=== PATIENT | female | born 1955 | race Two or more races ===

== ENCOUNTER 2021-02-14 10:17 | Emergency (ER) | payer MEDICARE, SELFPAY ==
[2021-02-14 11:12] VITALS: BP 139/67; PULSE 81; RESP 16; TEMP 35.8; O2SAT 99; BMI 24.0
--- NOTE | 2021-02-14 11:55 | ED_ITS ---
HPI - Ear Problem General Chief complaint: Ear Problems Stated complaint: ringing in ear/hearing loss Time Seen by Provider: 02/14/21 11:51 Source: patient Mode of arrival: ambulatory Limitations: no limitations History of Present Illness HPI Narrative: Patient with 4 months of ear ringing and pressure. But it has not improved Complaint: ear pain Location: left ear Duration: constant Severity: mild Discharge from ear: no Related Data Allergies Allergy/AdvReac Type Severity Reaction Status Date / Time No Known Allergies Allergy Verified 02/14/21 11:15 [No Known Allergies*] Review of Systems Constitutional: Constitutional: Reports no additional constitutional complaints Eyes: Eyes: Reports no additional eye complaints ENT: Denies dizziness Cardiovascular: Cardiovascular: Reports no additional cardiovascular complaints Respiratory: Respiratory: Reports as per HPI Gastrointestinal: Gastrointestinal: Reports no additional gastrointestinal complaints Genitourinary: Genitourinary: Reports no additional female genitourinary complaints Musculoskeletal: Musculoskeletal: Reports no additional musculoskeletal complaints Integumentary/Breasts: Skin/Breast: Denies rash Neurologic: Reports system reviewed and no additional complaints, except as documented, Denies dizziness and Denies Sensory deficit (Neuro) Psychiatric: Psychiatric: Denies anxiety [facility] Past Medical History Medical History High cholesterol Hypothyroid Social History Social History Advance Directives: No Advance Directives Information Provided: Yes Physical Exam Vital Signs: Vital Signs: Last Vital Signs Temp 96.4 F L 02/14/21 11:12 Pulse 81 02/14/21 11:12 Resp 16 02/14/21 11:12 BP 139/67 02/14/21 11:12 Pulse Ox 99 02/14/21 11:12 Body Mass Index 24.0 Const: General: healthy appearing Nutritional Appearance: average body habitus Orientation/consciousness: oriented to person and patient oriented x3 Limitations: no limitations HENMT: Head: Yes normal to inspection Ears: external ears normal General nose exam: Normal external nose present Mouth: Normal oral and palatal mucosa present and oropharynx normal Throat: Yes posterior oropharynx normal Eyes: General: appearance normal, both eyes and all related structures Neck: Other: supple Neck: Yes normal visual inspection Chest: Chest palpation & inspection: normal inspection of the chest Resp: Auscultation: clear to auscultation bilaterally Cardio: Jugular venous distension: no JVD Rate: regular rate Rhythm: regular rhythm Heart sounds: S1 normal heart sound present and S2 normal heart sound present GI: Inspection: Yes normal to inspection Palpation (GI): Soft to palpation, nontender and No hepatosplenomegaly present Auscultation: normal bowel sounds : General: Yes no CVA tenderness Back/Spine/Pelvis: Back: no CVA tenderness Skin: General skin exam: no rashes or lesions noted Neuro: General: oriented to person and patient oriented x3 Cranial nerves: Yes CN's II-XII intact bilaterally Motor exam (neuro): 5/5 motor strength present throughout Sensory Exam: No Sensory deficit (Neuro) Extrem: General: Yes normal to inspection Psych: Appearance: grossly normal Course Reevaluation(s) Reevaluation #1: tinnitus and ear pressure likely related to hearing loss will refer to Dr. Choe for ENT Time: 12:00 Discharge Plan Discharge Clinical Impression: Tinnitus Qualifiers: Laterality: left Qualified Code(s): H93.12 - Tinnitus, left ear Hearing loss Qualifiers: Hearing loss type: unspecified Laterality: left Qualified Code(s): H91.92 - Unspecified hearing loss, left ear Patient Disposition: Home, Self-Care Instructions: Hearing Loss (ED), Tinnitus (ED) Referrals: Jonny Whitley [Physician] - 1 week
== END 2021-02-14 12:09 | disposition home or self-care (01) ==
PROVIDERS: Emergency Provider Emergency Medicine
DX: H93.12 Tinnitus, left ear (principal); H91.92 Unspecified hearing loss, left ear
CPT/HCPCS: 99283

== ENCOUNTER 2021-09-20 14:30 | Emergency (ER) | payer MEDICARE, SELFPAY ==
--- NOTE | ~2021-09-20 | CT_ITS ---
EXAMINATION: CT INNER EAR TEMPORAL BONES CLINICAL INFORMATION: Left left ear loss of hearing. COMPARISON: None. TECHNIQUE: Multidetector helical was performed in the axial plane with generation of oblique axial and coronal reformatted projections. This CT examination was performed using dose optimization techniques as appropriate, variously including the following: *Automated exposure control *Adjustment of mA and/or kV according to patient size (this includes techniques or standardized protocols for targeted exams where dose is matched to indication/reason for exam; i.e. extremities or head) *Use of iterative reconstruction technique DLP: 457 mGy-cm. FINDINGS: Right: The external auditory canal appears normal. The tympanic membrane is not thickened. The middle ear cavity is well-aerated. The scutum is sharp. Prussak's space is clear. The tegmen is intact. The ossicular chain is intact. The facial nerve has a normal course. The inner ear structures are normally formed. The internal auditory canal is normal in size. The mastoid air cells are normally pneumatized and well-aerated. The carotid canal and jugular bulb appear normal. No bony erosion or destruction is seen. Left: The external auditory canal appears normal. The tympanic membrane is not thickened. The middle ear cavity is well-aerated. The scutum is sharp. Prussak's space is clear. The tegmen is intact. The ossicular chain is intact. The facial nerve has a normal course. The inner ear structures are normally formed. The internal auditory canal is normal in size. The mastoid air cells are normally pneumatized and well-aerated. The carotid canal and jugular bulb appear normal. No bony erosion or destruction is seen. Additional findings: There is mild paranasal sinus mucosal thickening. The imaged intracranial contents are unremarkable. CT/CT mastoid IMPRESSION: Bilateral mastoids and middle ear cavities are clear. No evidence of destructive process. No otosclerosis.
--- NOTE | ~2021-09-20 | CT_ITS ---
EXAMINATION: CT FACIAL BONES WITHOUT CONTRAST CLINICAL INFORMATION: Left ureter pain COMPARISON: None TECHNIQUE: 3 mm thin axial and reformatted 1.5 mm thin coronal and sagittal images of facial bones were obtained without contrast. DLP 239 mGy/cm This CT examination was performed using dose optimization techniques as appropriate, variously including the following: *Automated exposure control *Adjustment of mA and/or kV according to patient size (this includes techniques or standardized protocols for targeted exams where dose is matched to indication/reason for exam; i.e. extremities or head) *Use of iterative reconstruction technique FINDINGS: Exam is limited secondary to beam hardening artifact from dental amalgam. There is no acute maxillofacial fracture. The pterygoid plates are intact. The zygomatic arches are intact. The lamina papyracea are intact. The orbital rims are intact. The paranasal sinuses are well-aerated. No air-fluid levels are seen. There is no deviation of the nasal septum. The ostiomeatal complexes are clear. The lamina papyracea are intact. The ethmoid roofs are symmetric. The carotid canals are normally covered by bone. There are punctate calcifications in bilateral tonsils likely old chronic inflammatory process. No acute tonsillar enlargement seen. The nasopharyngeal and pharyngeal airway is widely patent. There are enlarged left submandibular gland and neck lymph nodes with the largest lymph node measuring 1.5 x 1.1 cm axial image 12/5. There are several additional lymph nodes visualized in the left neck level 2/3. No maxillary periapical disease is seen. The mastoid air cells and visualized middle ear cavities are well-aerated. The orbits are normal. The TMJs are unremarkable. The imaged portions of the brain demonstrate no acute abnormality. CT/CT facial bones wo con IMPRESSION: No acute process seen in the facial bones or the oral cavity. The mastoid sinuses are clear. No soft tissue mass seen in the oropharynx. There are benign calcifications in bilateral tonsillar pillars likely old chronic inflammatory process Enlarged left neck level 2 and level 3 lymph nodes suggestive of inflammatory nodes. Other etiologies a dense metastatic disease cannot be excluded. For further evaluation MRI neck can be performed as an outpatient.
[2021-09-20 16:45] VITALS: BP 145/92; PULSE 77; RESP 16; TEMP 36.3; O2SAT 99; BMI 24.5
--- NOTE | 2021-09-20 20:12 | ED_ITS ---
HPI - Ear Problem General Chief complaint: Ear Problems Stated complaint: Loss of hearing l ear Source: patient Mode of arrival: ambulatory Limitations: no limitations History of Present Illness HPI Narrative: 65-year-old female presents for several months of left ear blockage and decreased hearing. States that she was evaluated by ENT who said her exam was normal. Patient does have concerns because her ear feels full. She does not report loss of balance, dizziness, fevers, chills, or any other concerning symptoms. MD Complaint: decreased hearing Location: left ear Duration: constant Severity: moderate Relieving factors: nothing Exacerbating factors: nothing Discharge from ear: no Associated symptoms ear: decreased hearing Treatment prior to arrival: none Related Data Home Medications Medication Instructions Recorded Confirmed levothyroxine 50 mcg tablet 50 mcg PO DAILY 05/26/21 pravastatin 40 mg tablet 40 mg PO DAILY 05/26/21 Previous Rx's Medication Instructions Recorded ibuprofen 600 mg tablet 600 mg PO Q8H PRN pain 30 days #90 06/22/21 tabs ofloxacin 0.3 % ear drops 10 drp otic (ears) BID 7 days #10 07/01/21 mL Allergies Allergy/AdvReac Type Severity Reaction Status Date / Time No Known Allergies Allergy Verified 09/06/21 14:49 [No Known Allergies*] Review of Systems Review of Systems: Constitutional: No Fever, No Chills ENT/Mouth: Positive left ear decreased hearing, No Ear Pain, No Hoarseness, No sore throat Eyes: No Eye Pain, No Swelling, No Redness, No Foreign Body Cardiovascular: No Chest Pain, No SOB Respiratory: No Cough, No Dyspnea Gastrointestinal: No Nausea, No Vomiting, No Diarrhea, No abdominal Pain Genitourinary: No Dysuria, No Hematuria Musculoskeletal: No joint pain, No Myalgias, No Joint Swelling Skin: No Skin lacerations, No rash Neuro: No Weakness, No Numbness, No Paresthesias, No Loss of Consciousness, No Dizziness, No Headache Psych: No Anxiety/Panic, No Depression Heme/Lymph: no easy bruising, no Lymphadenopathy Endocrine: No Polyuria, No Polydipsia Yes all other systems are reviewed and are negative [facility] Past Medical History Attestation statement: The following information was validated with the patient. Source: old records reviewed Medical History High cholesterol Hypothyroid Social History Social History Patient Tobacco Use Status: Never used Tobacco Advance Directives: No Advance Directives Information Provided: No Physical Exam Vital Signs: Vital Signs: Last Vital Signs Temp 97.3 F 09/20/21 16:45 Pulse 77 09/20/21 16:45 Resp 16 09/20/21 16:45 BP 145/92 H 09/20/21 16:45 Pulse Ox 99 09/20/21 16:45 O2 Del Method 09/20/21 16:45 BMI result Body Mass Index 24.5 Appearance: Alert. Oriented X3. No acute distress. Eyes: Pupils equal, round and reactive to light. ENT: Pharynx normal. Bilateral tympanic membranes intact. Canals clear. No mastoid tenderness. Neck: Normal inspection. Neck supple. CVS: Normal heart rate and rhythm. Pulses normal. Respiratory: No respiratory distress. Breath sounds normal. Abdomen: Soft and nontender. Skin: Skin warm and dry. Normal skin color. Normal skin turgor. Extremities: No lower extremity edema. Gait well balanced well coordinated. Neuro: No motor deficit. No sensory deficit. Cranial nerves 2-12 intact. Course Course Course Narrative: 65-year-old female presents with decreased hearing to the left ear for several months. Does not report any fevers, pain, or trauma. Was evaluated by ENT with negative workup. Physical exam is unremarkable. Tympanic membranes bilaterally intact. No mastoid tendernes. Patient is adamant about receiving a CT scan. I did discuss risks and benefits of radiation exposure, patient would like to continue with CT scan. Will order CT scan of facial bones the mastoids. CT scan negative for acute findings. Plan of care to discharge home and have patient follow-up with her own ENT. Patient verbalized understanding of and agrees plan of care discharge home. Verbalized understanding of signs symptoms indicating need for emergent intervention. MDM - Ear Differential Diagnosis Differential diagnosis: Likely otitis externa, otitis media, foreign body in ear and ruptured TM Medical Records Attestation: I reviewed the patient's medical records. Imaging Data CT facial bones and mastoid: Attestation: I personally reviewed and interpreted this imaging study as follows: Radiologist's impression: FINDINGS: Right: The external auditory canal appears normal. The tympanic membrane is not thickened. The middle ear cavity is well-aerated. The scutum is sharp. Prussak's space is clear. The tegmen is intact. The ossicular chain is intact. The facial nerve has a normal course. The inner ear structures are normally formed. The internal auditory canal is normal in size. The mastoid air cells are normally pneumatized and well-aerated. The carotid canal and jugular bulb appear normal. No bony erosion or destruction is seen. Left: The external auditory canal appears normal. The tympanic membrane is not thickened. The middle ear cavity is well-aerated. The scutum is sharp. Prussak's space is clear. The tegmen is intact. The ossicular chain is intact. The facial nerve has a normal course. The inner ear structures are normally formed. The internal auditory canal is normal in size. The mastoid air cells are normally pneumatized and well-aerated. The carotid canal and jugular bulb appear normal. No bony erosion or destruction is seen. Additional findings: There is mild paranasal sinus mucosal thickening. The imaged intracranial contents are unremarkable. CT/CT mastoid IMPRESSION: Bilateral mastoids and middle ear cavities are clear. No evidence of destructive process. No otosclerosis. ? Discharge Plan Discharge Clinical Impression: Hearing deficit Patient Disposition: Home, Self-Care Instructions: Hearing Loss (ED) Additional Instructions: You evaluated for left ear hearing deficit. CT scan of head and mastoids is n egative for acute findings Please follow-up with your ENT. Thank you for choosing this emergency department for evaluation. Please follow-up with primary care physician as needed. Return to the emergency department for any new, concerning, or worsening symptoms. Prescriptions: No Action ibuprofen 600 mg tablet 600 mg PO Q8H PRN (Reason: pain) 30 Days Qty: 90 0RF levothyroxine 50 mcg tablet 50 mcg PO DAILY pravastatin 40 mg tablet 40 mg PO DAILY ofloxacin 0.3 % drops 10 drp otic (ears) BID 7 Days Qty: 10 0RF Rx Instructions: please disregard the oflacin rx for once a day dosing sent in error Referrals: Jonny Whitley [Physician] -
== END 2021-09-20 22:02 | disposition home or self-care (01) ==
PROVIDERS: Emergency Provider Emergency Medicine; PCP Hospitalist
DX: H91.92 Unspecified hearing loss, left ear (principal); H70.93 Unspecified mastoiditis, bilateral
CPT/HCPCS: 70481; 70486; 99282; 99284

== ENCOUNTER 2021-11-07 12:03 | Outpatient (REF) | payer MEDICARE, SELFPAY ==
[2021-11-07 13:27] LABS: Mean Corpuscular HGB Conc 31.4 g/dl (31.0-35.0); Red Cell Distribution Width 13.4 % (11.0-16.0)
[2021-11-07 13:28] LABS: Hematocrit 39.2 % (37.0-47.0); Hemoglobin 12.3 g/dl (12.0-16.0); Mean Corpuscular Hemoglobin 27.6 pg (27.0-33.0); Mean Corpuscular Volume 88.1 fL (80.0-98.0); Mean Platelet Volume 14.1 fL (9.4-12.3); Red Blood Count 4.45 X10*6/uL (4.20-5.50); White Blood Count 6.5 X10*3/uL (4.8-10.8)
[2021-11-07 13:42] LABS: PLT ABN DIST 1
[2021-11-07 13:43] LABS: Platelet Count 117 X10*3/uL (160-400)
[2021-11-07 13:46] LABS: Alanine Aminotransferase 18 U/L (0-31); Albumin Level 3.9 g/dL (3.5-5.0); Alkaline Phosphatase 73 U/L (39-117); Anion Gap 12 (12-20); Aspartate Amino Transferase 18 U/L (5-31); Bilirubin Total 0.6 mg/dL (0.0-1.0); Blood Urea Nitrogen 13 mg/dL (9-16); Calcium 9.3 mg/dL (8.4-10.2); Carbon Dioxide 29 mmol/L (22-29); Chloride 106 mmol/L (96-108); Cholesterol 188 mg/dL; Estimated Glomerular Filt Rate > 60; Glucose Fasting 97 mg/dL (60-99); HDL Cholesterol 61 mg/dL; LDL Cholesterol Calculated 93 mg/dl; Potassium 4.1 mmol/L (3.3-5.1); Sodium 143 mmol/L (135-145); Total Protein 6.7 g/dL (6.5-8.0); Triglycerides 170 mg/dL
[2021-11-07 14:08] LABS: TSH reflex Free T4 1.26 uIU/mL (0.32-4.0)
== END 2021-11-07 12:04 | disposition home or self-care (01) ==
LOC: HO.WFDLDS 12:03
PROVIDERS: Visit Provider Hospitalist
DX: Z00.00 Encounter for general adult medical examination without abnormal findings (principal); E78.00 Pure hypercholesterolemia, unspecified; E03.9 Hypothyroidism, unspecified
CPT/HCPCS: 36415; 80053; 80061; 84443; 85027

== ENCOUNTER 2022-07-05 09:40 | Outpatient (REF) | payer MEDICARE, SELFPAY ==
[2022-07-05 11:54] LABS: Hematocrit 40.2 % (37.0-47.0); Hemoglobin 12.6 g/dl (12.0-16.0); Mean Corpuscular HGB Conc 31.3 g/dl (31.0-35.0); Mean Corpuscular Hemoglobin 27.2 pg (27.0-33.0); Mean Corpuscular Volume 86.8 fL (80.0-98.0); Mean Platelet Volume 14.3 fL (9.4-12.3); Platelet Count 118 X10*3/uL (160-400); Red Blood Count 4.63 X10*6/uL (4.20-5.50); Red Cell Distribution Width 13.5 % (11.0-16.0); White Blood Count 4.5 X10*3/uL (4.8-10.8)
[2022-07-05 12:33] LABS: Alanine Aminotransferase 23 U/L (0-31); Albumin Level 3.9 g/dL (3.5-5.0); Alkaline Phosphatase 73 U/L (39-117); Anion Gap 10 (12-20); Aspartate Amino Transferase 22 U/L (5-31); Bilirubin Total 0.6 mg/dL (0.0-1.0); Blood Urea Nitrogen 15 mg/dL (9-16); Calcium 9.2 mg/dL (8.4-10.2); Carbon Dioxide 29 mmol/L (22-29); Chloride 105 mmol/L (96-108); Cholesterol 187 mg/dL; Estimated Glomerular Filt Rate > 60; Glucose Fasting 107 mg/dL (60-99); HDL Cholesterol 57 mg/dL; LDL Cholesterol Calculated 116 mg/dl; Potassium 4.1 mmol/L (3.3-5.1); Sodium 140 mmol/L (135-145); Total Protein 6.5 g/dL (6.5-8.0); Triglycerides 71 mg/dL
== END 2022-07-05 09:41 | disposition home or self-care (01) ==
LOC: HO.WFDLDS 09:40
PROVIDERS: Visit Provider Hospitalist
DX: Z00.00 Encounter for general adult medical examination without abnormal findings (principal); Z13.89 Encounter for screening for other disorder
CPT/HCPCS: 36415; 80053; 80061; 84443; 85027

== ENCOUNTER 2023-06-06 10:52 | Outpatient (AMB) | payer OTHER, MEDICARE, SELFPAY ==
[2023-06-06 10:55] VITALS: BP 130/72; PULSE 78; O2SAT 98; BMI 23.4
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
== END 2023-06-06 15:04 | disposition home or self-care (01) ==
PROVIDERS: PCP Hospitalist; Visit Provider Nurse Practitioner Family
DX: S13.4XXA Sprain of ligaments of cervical spine, initial encounter (principal); V89.2XXA Person injured in unspecified motor-vehicle accident, traffic, initial encounter; M54.9 Dorsalgia, unspecified
CPT/HCPCS: 99214

== ENCOUNTER 2024-01-28 11:48 | Emergency (ER) | payer OTHER, MEDICARE, SELFPAY ==
--- NOTE | ~2024-01-28 | XR_ITS ---
EXAMINATION: XR CHEST CLINICAL INFORMATION: Chest pain. COMPARISON: 08/16/2016 TECHNIQUE: Frontal view of the chest was obtained. FINDINGS: The lungs are well inflated. There is no gross pneumothorax. Heart size is normal. No new focal consolidation. No significant pleural effusion. XR/XR chest 1V IMPRESSION: No focal consolidation. No significant pleural effusion. This study was presented today January 28, 2024 for interpretation. Stat results provided at this time as requested by referring provider. Electronically signed by: Alesha Mcwilliams MD 01/28/2024 01:24 PM [facility]
--- NOTE | 2024-01-28 11:50 | ECG_ITS ---
Test Reason : chest pain Blood Pressure : / mmHG Vent. Rate : 085 BPM Atrial Rate : 085 BPM P-R Int : 150 ms QRS Dur : 080 ms QT Int : 360 ms P-R-T Axes : 055 -04 056 degrees QTc Int : 428 ms Normal sinus rhythm Nonspecific T wave abnormality Abnormal ECG When compared to the previous EKG of No significant changes seen Referred By: Geoff De Anda Electronically Signed By:CYNTHIA CHILD MD
[2024-01-28 12:07] LABS: MANUAL DIFF FLAG NO
[2024-01-28 12:16] LABS: Basophils Percent Auto 0.8 % (0-2); Eosinophils Absolute Auto 0.1 X10*3/uL (0.0-0.4); Eosinophils Percent Auto 1.6 % (0-4); Hematocrit 40.9 % (37.0-47.0); Hemoglobin 13.3 g/dl (12.0-16.0); Imm Gran Abs Auto 0.01 X10*3/uL (0.00-0.03); Imm Gran Pct Auto 0.2 % (0.0-0.4); Lymphocytes Absolute Auto 1.4 X10*3/uL (1.2-4.9); Lymphocytes Percent Auto 28.9 % (20-40); Mean Corpuscular HGB Conc 32.5 g/dl (31.0-35.0); Mean Corpuscular Hemoglobin 28.6 pg (27.0-33.0); Mean Platelet Volume 13.3 fL (9.4-12.3); Monocytes Absolute Auto 0.5 X10*3/uL (0.1-1.2); Monocytes Percent Auto 10.3 % (2-11); Neutrophils Absolute Auto 2.8 x10*3/uL (2.0-8.3); Neutrophils Percent Auto 58.2 % (45-73); Platelet Count 128 X10*3/uL (160-400); Red Blood Count 4.65 X10*6/uL (4.20-5.50); Red Cell Distribution Width 13.7 % (11.0-16.0); White Blood Count 4.9 X10*3/uL (4.8-10.8)
[2024-01-28 12:24] LABS: Alanine Aminotransferase 27 U/L (0-31); Albumin Level 3.9 g/dL (3.5-5.0); Alkaline Phosphatase 88 U/L (39-117); Anion Gap 13 (12-20); Aspartate Amino Transferase 28 U/L (5-31); Bilirubin Total 0.4 mg/dL (0.0-1.0); Blood Urea Nitrogen 16 mg/dL (9-16); Calcium 10.3 mg/dL (8.4-10.2); Carbon Dioxide 26 mmol/L (22-29); Chloride 106 mmol/L (96-108); Estimated Glomerular Filt Rate > 60; Glucose Random 107 mg/dL (60-115); Potassium 4.1 mmol/L (3.3-5.1); Sodium 141 mmol/L (135-145)
[2024-01-28 12:27] LABS: IDNOW Serial# 152EDE1D; Influenza A Negative (Negative)
[2024-01-28 12:28] LABS: COVID-19 Test Negative (Negative); IDNOW Serial# 08D9AD1C
[2024-01-28 12:30] LABS: B Type Natriuretic Peptide 39 pg/mL (<100); INTERNATIONAL NORM RATIO 0.9 (0.9-1.1); Prothrombin Time 10.6 SEC (10.9-12.4)
[2024-01-28 12:33] LABS: Partial Thromboplastin Time 27.8 SEC (26.0-36.8)
[2024-01-28 12:34] LABS: Troponin-I High Sensitivity < 2.7 ng/L (<3.5-17.0)
[2024-01-28 12:37] VITALS: BP 126/76; PULSE 80; RESP 20; TEMP 36.3; O2SAT 98; BMI 24.0
--- NOTE | 2024-01-28 12:41 | ED.GENADULT ---
HPI - General Adult General Chief complaint: Arrhythmia/Palpitations Stated complaint: palpitations-cp Time Seen by Provider: 01/28/24 14:00 History of Present Illness ED Provider: Dr. Dejesus HPI narrative: 68 y/o F patient; PMH hypothyroidism; presents from home reporting three days of intermittent palpitations. Associated with left-sided non-radiating pain when palpitations occur. She otherwise denies: fever or chills, cough/congestion, nausea/vomiting, diaphoresis, syncope. Related Data Home Medications ?Medication ?Instructions ?Recorded ?Confirmed levothyroxine 50 mcg tablet 50 mcg PO DAILY 05/26/21 12/14/21 ezetimibe 10 mg tablet 10 mg PO DAILY 06/06/23 Previous Rx's ?Medication ?Instructions ?Recorded naproxen 375 mg tablet,delayed 375 mg PO BID PRN pain 30 days #60 06/06/23 release tabs tizanidine 4 mg tablet (Zanaflex) 2 mg (1/2 x 4 mg) PO BID PRN 06/06/23 muscle spasticity 5 days #5 tabs Allergies Allergy/AdvReac Type Severity Reaction Status Date / Time No Known Allergies Allergy Verified 01/28/24 12:39 [No Known Allergies*] Review of Systems Review of Systems: Yes all other systems are reviewed and are negative [facility] Past Medical History Attestation statement: The following information was validated with the patient. Source: old records reviewed Medical History High cholesterol Hypothyroid Surgical History No pertinent past surgical history Family History Family History Mother Breast cancer Social History Social History Housing: House Patient Tobacco Use Status: Never used Tobacco Smoked in Last 30 Days: No e-Cigarette/Vaping Use: Never Used Use of substances other than those prescribed or required for medical reasons: No Advance Directives: No Advance Directives Information Provided: Yes service: No Current occupational status: retired Current occupational exposures/hazards: No Cognitive needs: No Hearing needs: No Vision needs: Yes Physical Exam ED Vital Signs: Vital Signs - 24 hr 01/28/24 12:37 01/28/24 14:32 Temperature 97.4 F 97.3 F Pulse Rate 80 83 Respiratory Rate 20 16 Blood Pressure 126/76 114/73 Pulse Oximetry 98 98 Oxygen Delivery Method Room Air Room Air BMI result Body Mass Index 24.0 Patient is afebrile and hemodynamically stable Const General: cooperative and no acute distress Orientation/consciousness: patient oriented x3 HENMT Head: Yes normal to inspection and Yes atraumatic Eyes General: appearance normal, both eyes and all related structures Pupils: Equal, round and reactive pupils present Neck Neck: Yes normal visual inspection, Yes full ROM, Yes supple and No tender Chest Chest palpation & inspection: normal inspection of the chest and normal palpation of entire chest wall Resp Effort & Inspection: normal respiratory effort, able to speak in complete sentences, no cough and no respiratory distress Auscultation: clear to auscultation bilaterally Cardio Rate: regular rate Rhythm: regular rhythm Peripheral pulses: Peripheral pulses 2+ throughout GI Inspection: No Abdominal wall edema and No distended Palpation (GI): Soft to palpation, not firm, nontender, no guarding and not rigid Auscultation: normal bowel sounds General: Yes no CVA tenderness Back/Spine/Pelvis Back: no CVA tenderness Neuro General: patient oriented x3 Cranial nerves: Yes Equal, round and reactive pupils present Course Course Course Narrative: RME: 68-year-old female presents to ED for palpitations and left-sided chest pain. Patient denies any leg swelling, calf pain, pitting edema, coughing up blood. He EKG labs ordered. Reevaluation(s) Reevaluation #1: Patient is afebrile and hemodynamically stable. Reviewed laboratory studies. No leukocytosis. Baseline thrombocytopenia. Troponin negative. TSH within normal limits. COVID negative. CXR reassuring. With reassuring EKG, CXR, and troponin - after 3 days of symptoms - unlikely symptoms 2/2 to ACS, pneumonia, pneumothorax, aortic dissection. Patient is Well's criteria low risk for pulmonary embolism. Plan: Discharge to home with PCP follow up Return precautions given Medical Decision Making Lab Data 01/28/24 12:02 01/28/24 12:02 Labs: Lab Results 01/28/24 01/28/24 Range/Units 12:02 14:15 WBC 4.9 (4.8-10.8) X10*3/uL RBC 4.65 (4.20-5.50) X10*6/uL Hgb 13.3 (12.0-16.0) g/dl Hct 40.9 (37.0-47.0) % MCV 88.0 (80.0-98.0) fL MCH 28.6 (27.0-33.0) pg MCHC 32.5 (31.0-35.0) g/dl RDW 13.7 (11.0-16.0) % Plt Count 128 L (160-400) X10*3/uL MPV 13.3 H (9.4-12.3) fL Immature Gran % (Auto) 0.2 (0.0-0.4) % Neut % (Auto) 58.2 (45-73) % Lymph % (Auto) 28.9 (20-40) % [place] % (Auto) 10.3 (2-11) % Eos % (Auto) 1.6 (0-4) % Baso % (Auto) 0.8 (0-2) % Lymph # (Auto) 1.4 (1.2-4.9) X10*3/uL [place] # (Auto) 0.5 (0.1-1.2) X10*3/uL Eos # (Auto) 0.1 (0.0-0.4) X10*3/uL Baso # (Auto) 0.0 (0.0-0.2) X10*3/uL Abs Immat Gran (auto) 0.01 (0.00-0.03) X10*3/uL Absolute Neuts (auto) 2.8 (2.0-8.3) x10*3/uL Absolute Nucleated RBC 0.000 (0.0-0.012) X10*3/uL Nucleated RBC % (auto) 0.0 (0.0-0.2) /100WBC PT 10.6 L (10.9-12.4) SEC INR 0.9 (0.9-1.1) APTT 27.8 (26.0-36.8) SEC Sodium 141 (135-145) mmol/L Potassium 4.1 (3.3-5.1) mmol/L Chloride 106 (96-108) mmol/L Carbon Dioxide 26 (22-29) mmol/L Anion Gap 13 (12-20) BUN 16 (9-16) mg/dL Creatinine 0.88 (0.5-1.4) mg/dL Estim Creat Clear Calc TNP Estimated GFR > 60 Random Glucose 107 (60-115) mg/dL Calcium 10.3 H D (8.4-10.2) mg/dL Total Bilirubin 0.4 (0.0-1.0) mg/dL AST 28 (5-31) U/L ALT 27 (0-31) U/L Alkaline Phosphatase 88 (39-117) U/L Troponin I High Sens < 2.7 < 2.7 (<3.5-17.0) ng/L B-Natriuretic Peptide 39 (<100) pg/mL Total Protein 7.0 (6.5-8.0) g/dL Albumin 3.9 (3.5-5.0) g/dL TSH 1.95 (0.32-4.0) uIU/mL COVID-19 (IAN) Negative (Negative) COVID-19 Clin Com See Note Influenza Type A (KERRIE) Negative (Negative) Influenza Type B (KERRIE) Negative (Negative) Influenza A & B Note See Note Independent Interpretation I performed an independent interpretation of an: EKG Interpretation: NSR 85BPM without ischemic changes, normal intervals Radiology Impression Discussion of test interpretation with radiology: I have reviewed the radiologist's reading. Radiologist Impression: EXAMINATION: XR CHEST CLINICAL INFORMATION: Chest pain. COMPARISON: 08/16/2016 TECHNIQUE: Frontal view of the chest was obtained. FINDINGS: The lungs are well inflated. There is no gross pneumothorax. Heart size is normal. No new focal consolidation. No significant pleural effusion. XR/XR chest 1V IMPRESSION: No focal consolidation. No significant pleural effusion. This study was presented today January 28, 2024 for interpretation. Stat results provided at this time as requested by referring provider. Electronically signed by: Alesha Mcwilliams MD 01/28/2024 01:24 PM [facility] Discharge Plan Discharge Clinical Impression: Palpitations Patient Disposition: Home, Self-Care Instructions: Heart Palpitations (DC) Additional Instructions: As we discussed, you were seen today for palpitations. Your CXR, EKG of your heart, and lab work was reassuring. The next step is to follow up with your primary doctor regarding your recent emergency department visit. Return to the emergency department for: Chest pain Difficulty breathing Passing out Prescriptions: No Action levothyroxine 50 mcg tablet 50 mcg PO DAILY ezetimibe 10 mg tablet 10 mg PO DAILY tizanidine [Zanaflex] 4 mg tablet 2 mg PO BID PRN (Reason: muscle spasticity) 5 Days Qty: 5 0RF naproxen 375 mg tablet,delayed release (DR/EC) 375 mg PO BID PRN (Reason: pain) 30 Days Qty: 60 0RF Interventions: ED Discharge Assessment Last Done: 01/28/24 14:32 Discharge Date/Time: 01/28/24 14:33 Print Language: Tunisian
[2024-01-28 12:46] LABS: TSH reflex Free T4 1.95 uIU/mL (0.32-4.0)
--- NOTE | 2024-01-28 14:13 | PC.NURSE ---
patient from external triage with cc of left breast pain for the last few days, patient states she has had pain in her left breast and occasional palpitations for a few days now, when asking patient to clarify if the pain is in her breast or her chest the patient grabs her left breast and squeezes it stating it hurts inside of her breast. patient states she has a history of her heart rate going fast and when she felt the pain she got anxious and felt the palpitations again. patient denies shortness of breath or swelling to extremities, HR WNL, VS WNL. patient able to ambulate with steady gait to room from external triage. no redness, rash or discharge noted from left breast.
[2024-01-28 14:32] VITALS: BP 114/73; PULSE 83; RESP 16; TEMP 36.3; O2SAT 98
[2024-01-28 14:57] LABS: Troponin-I High Sensitivity < 2.7 ng/L (<3.5-17.0)
[2024-01-28 16:12] LABS: Influenza B2 Negative (Negative)
== END 2024-01-28 14:33 | disposition home or self-care (01) ==
LOC: HO.ED 14:24
PROVIDERS: Physician Assistant; Emergency Provider Emergency Medicine; PCP Internal Medicine
DX: R00.2 Palpitations (principal); R07.9 Chest pain, unspecified; E03.9 Hypothyroidism, unspecified; Z11.52 Encounter for screening for COVID-19
CPT/HCPCS: 36415; 71045; 80053; 83880; 84443; 84484; 85025; 85610; 85730; 87502; 87635; 93005; 99283; 99285

== ENCOUNTER → 2024-01-28 11:50 | Outpatient (BNV) | payer MEDICARE, SELFPAY | PROVIDERS: Emergency Provider Emergency Medicine; PCP Internal Medicine; Visit Provider Internal Medicine Cardiovascular Disease | DX: R07.9 Chest pain, unspecified (principal); R94.31 Abnormal electrocardiogram [ECG] [EKG] | CPT/HCPCS: 93010 ==

== ENCOUNTER 2025-03-06 12:56 | Outpatient (REF) | payer MEDICARE, MEDICAID, SELFPAY | END 2025-03-06 12:57 | disposition home or self-care (01) | LOC: HO.LAB 12:56 | PROVIDERS: PCP Internal Medicine; Visit Provider Student in an Organized Health Care Education/Training Program | DX: E06.3 Autoimmune thyroiditis (principal) | CPT/HCPCS: 36415; 84443; 99202 ==

== ENCOUNTER 2025-03-06 12:56 | Outpatient (AMB) | payer MEDICARE, MEDICAID, SELFPAY ==
--- NOTE | 2025-03-06 12:58 | A.OFFVIS_ITS ---
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 - Presents for evaluation of thyroid function, specifically requesting a more thorough assessment of their thyroid status. Reports concerns about symptoms and a desire for a specialist opinion. - Reports a history of hypothyroidism diagnosed many years ago, in their thirties. Has been on levothyroxine for over 30 years. The initial dose was 25 mcg, which was later changed to 50 mcg, a dose that has been maintained for a long time. Reports recent symptoms including unintentional weight loss, from approximately 130 lbs to 125 lbs. Also notes difficulty gaining weight. Experiences temperature sensitivity, with feelings of being hot, particularly at night in the summer, and alternating with cold sensations. Reports occasional palpitations, described as occurring once in a while, and sometimes feeling depressed or anxious. Experiences constipation, requiring medication, with bowel movements occurring as infrequently as once every one to two weeks. Reports new- onset anxiety, feeling the need to be on the go almost every day. Also notes new-onset hand tremors. Reports occasional mild chest pain and some difficulty swallowing, but denies any neck pain or pressure. Denies any palpable bumps in the neck but recalls an emergency room visit last year for palpitations. - Past medical history is significant for hypothyroidism for over 30 years. Denies any other medical problems. Denies any history of radiation exposure to the neck. - Current medication is levothyroxine 50 mcg daily. - Family history is positive for thyroid disease. Their mother had thyroid nodules and underwent a thyroidectomy due to fear of cancer, though no malignancy was confirmed. Their sister has a condition similar to hypothyroidism. - Allergies: No known drug allergies. Physical exam: General: Well appearing. NAD. Neck/Thyroid: Thyroid not palpable, no nodules. Eyes: No conjunctival injection, not lid lag or proptosis CV: RRR, no murmur. No edema. Resp:Lungs clear to auscultation bilaterally Abdomen: Soft, nontender. nondistended Extremities/Neuro: No weakness or tremor of outstretched hands Labs Laboratory Tests 07/05/22 01/28/24 09:45 12:02 TSH 0.90 1.95 PFSH Medical History (Updated 03/06/25 @ 13:28 by Winter Kenney MD) High cholesterol Hypothyroid Surgical History (Updated 03/06/25 @ 13:07 by SHWETHA Carrizales) Hx of tubal ligation Family History (Updated 03/06/25 @ 13:13 by SHWETHA Carrizales) Mother Breast cancer Family history of cancer Sister Hx of thyroidectomy Sister Thyroid nodule Parathyroid disease Brother Thyroid disease Father Diabetes mellitus Social History Housing: House Patient Tobacco Use Status: Never used Tobacco e-Cigarette/Vaping Use: Never Used service: No Current occupational status: retired Current occupational exposures/hazards: No Cognitive needs: No Hearing needs: No Vision needs: Yes Physical Exam Vital Signs: Last Vital Signs Pulse 77 03/06/25 13:03 BP 118/66 03/06/25 13:03 Pulse Ox 97 03/06/25 13:03 Oxygen Delivery Method Room Air 03/06/25 13:03 BMI result Body Mass Index 22.9 Assessment & Plan Assessment & Plan (1) Hypothyroid: Code(s): E03.9 - Hypothyroidism, unspecified Category: Medical Qualifiers: 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 Recent TSH in July 2024 was normal, suggesting euthyroid state. Current symptoms of weight loss, temperature lability, palpitations, anxiety, may not be directly attributable to thyroid dysfunction given the normal TSH level. - Investigations planned: Will repeat thyroid function tests to ensure current levels are within the target range. Will also obtain thyroid US. - Medical treatment planned: Continue levothyroxine 50 mcg daily pending review of new laboratory results. - Lifestyle modifications: Advised that weight loss can have many causes beyond thyroid disease and that other potential etiologies should be investigated by their primary care provider. - Follow-up appointments: Will follow up after laboratory results are available to review findings and adjust management if necessary. - Referrals: Recommended discussing further evaluation for weight loss with their primary care physician, including appropriate cancer screenings such as for breast and colon cancer. 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
[2025-03-06 13:03] VITALS: BP 118/66; PULSE 77; O2SAT 97; BMI 22.9
--- OUTSIDE RECORDS SUMMARY | 2025-03-06 18:36 | XMS_ITS | Patient Health Record ---
[facility] [place] Address [address] [place] [address] Care Team Providers Care Business Professor Name Role Phone Karol Morales NP Primary Care Provider Daniel Bhat Unavailable [phone] Allergies No Known Allergies Reason For Referral No Information Medications Medication SIG (Take, Route, Frequency, Duration) Notes Start Date End Date Status LamISIL 250 MG 1 tablet Orally Once a day for 1 week per month; Duration: 90 days Active Levothyroxine Sodium 50 MCG 1 tablet in the morning on an empty stomach Orally Once a day; Duration: 30 day(s) Active Pravastatin Sodium 40 MG 1 tablet Orally Once a day; Duration: 30 day(s) Active Social History Tobacco Use: Social History Observation Description Date Details (start date - stop date) Never Smoker NA - NA Tobacco Use/Smoking Question Answer Notes Are you a: nonsmoker Alcohol Screen Question Answer Notes Did you have a drink containing alcohol in the p ast year? No Points 0 Interpretation Negative Tobacco use other than smoking: Question Answer Notes Are you an other tobacco user? No Plan Of Treatment Pending Test Test Name Order Date *Liver Function Test (LFT) 08/23/2022 Insurance Providers Payer Name Payer Address Payer Phone Subscriber Number Group Number Insured Name Patient Relationship to Insured Coverage Start Date Coverage End Date [facility] [employer] Claims [address] [place] [id number] [employer], [place] Self - patient is the insured Medical (General) History Medical History History ICD Code Anxiety CAD (Cholesterol) Diabetic, pre Glaucoma Sciatica thyroid
--- OUTSIDE RECORDS SUMMARY | 2025-03-06 18:36 | XMS_ITS | Clinical Summary ---
Author Organization [facility] [address] [place] [address] Address [address] [place] [address] Phone Care Team Providers Care Poll Watcher Name Role Phone Tennille Flores MD Primary Care Provider [phone] Allergies No known active allergies Medications calcium carbonate/vitam in D3 (CALCIUM + D ORAL) Take by mouth 2 (two) times a day. Active pedi multivit no.228/fluoride (ZBAJA-MDE-HEFV ORAL) Take by mouth 1 (one) time each day. Active vitamin E acetate (VITAMIN E ORAL) by Not Applicable route 1 (one) time each day. Active fluticasone propionate (FLONASE) 50 mcg/actuation nasal spray Administer 1 spray into each nostril 2 (two) times a day if needed (nasal congestion). 4 Active loratadine (CLARITIN) 10 mg tablet Take 1 tablet (10 mg total) by mouth 1 (one) time each day. 4 Active ezetimibe (ZETIA) 10 mg tablet Take 1 tablet (10 mg total) by mouth 1 (one) time each day in the evening. 90 tablet 3 5 Active levothyroxine (SYNTHROID, LEVOTHROID) 50 mcg tablet Take 1 tablet (50 mcg total) by mouth 1 (one) time each day before breakfast. 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 (02/25/2024): (+) thyroid autoantibodies Resolved Problems Problem Noted Date Diagnosed Date Resolved Date Condition not found 02/16/2014 03/03/20 24 Overview (02/25/2024): Varicose veins Encounters Date Type Department Care Team Description 01/12/2025 1:15 PM EDT - 01/12/2025 11:59 PM EDT Hospital Encounter Radiology Department - [address] [phone] Encounter for screening mammogram for breast cancer Discharge Disposition: Home or Self Care 01/08/2025 Results Follow-Up Gastroenterology - [place] [address] [facility] [address] [facility] [address] [place] [address] Sasha Gonzalez DO 01/06/2025 10:57 AM EDT Anesthesia Event [facility] Endoscopy [address] [place] [id number] Jeff Alexander DO 01/06/2025 9:08 AM EDT - 01/06/2025 11:59 PM EDT Hospital Encounter [facility] Endoscopy [address] [place] [id number] Sasha Gonzalez DO Barnes, Tyanna R, CRNA Dasilva, John E, MD Colon cancer screening Discharge Disposition: Home or Self Care 12/25/2024 Telephone Adult Medicine [address] [phone] Tennille Flores MD 12/24/2024 11:00 AM EDT Office Visit Adult Medicine [address] [phone] Dori Moore PA Encounter for annual wellness visit (AWV) in Medicare patient (Primary Dx); 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; Osteopenia, unspecified location; Asymptomatic menopausal state 12/19/2024 Telephone Adult Medicine [address] [phone] Ann-Marie Mitchell MA from Last 3 Months Immunizations Immunization Administration Dates Next Due Influenza Quadravalent, MDCK , 0.5ml, preservative free (Flucelvax) 6mo and older 05/06/2019 Influenza trivalent, 0.5mL, preservative free (Fluarix; FluLaval; Fluzone) ages 6mo and older (Afluria) 3 years and older 01/19/2020 Influenza, Unspecified 04/10/2012 Moderna SARS-CoV-2 COVID-19, mRNA, LNP-S, preservative free 05/28/2020,04/27/2020 Pneumococcal conjugate 13 va lent (Prevnar 13, PCV13) 2mo and older 06/03/2020 Td Tetanus diptheria (Tdvax) 7yo and older 12/16 Tdap Tetanus diptheria acell ular pertussis (Boostrix; Adacel) 7yo and older 11/09/2010 Surgical History Surgery Date Site/Laterality Comments TUBAL LIGATION COLONOSCOPY 10/07/09 tics, but poor prep OTHER SURGICAL HISTORY 02/17/15 CN tics; repeat in 10 yrs Medical History Medical History Date Comments Tinnitus Hypothyroidism 10/13/2011 Hypercholesterolemia Insomnia Sciatica GERD (gastroesophageal reflux disease) 03/03/2022 Family History Medical History Relation Name Comments Breast cancer Aunt mat aunt 70s aunt Diabetes Brother ?thyroid issue, unclear Diabetes Father Breast cancer Mother 70s HTN Breast cancer Other m cousin 60s Throat cancer Paternal Grandmother Thyroid cancer Sister Colon cancer Neg Hx Ovarian cancer Neg Hx Uterine cancer Neg Hx Relation Name Status Comments Aunt mat aunt 70s Brother Alive Father Maternal Grandfather [place] - yo dung Maternal Grandmother amputat ion Mother 70s Alive Other m cousin 60s Alive Paternal Grandfather Paternal Grandmother Sister Alive Social History Tobacco Use Types Packs/Day Years Used Date Smoking Tobacco: Never Smokeless Tobacco: Never Tobacco Cessation:Counseling Given: Not Answered Alcohol Use Standard Drinks/Week Comments No 0 (1 standard drink = 0.6 oz pur e alcohol) Housing Instability Answer Date Recorde d Are you worried that in the next 2 months you may not have stable housing? No 12/24/2024 Food Access & Nutrition Answer Date Rec orded Do you have access to a vari ety of food including fruits and vegetables? No 12/24/2024 Access to Healthcare Answer Date Record ed Within the last 3 months, ho w many times did you visit the emergency department for your medical care? 0 12/24/2024 Health Literacy Answer Date Recorded How often do you need to hav e someone help you when you read instructions, pamphlets, or other written material from your doctor or pharmacy? Never 12/24/2024 Caregiver: How often do you need to have someone help you when you read instructions, pamphlets, or other written material from your doctor or pharmacy? Not on file 12/24/2024 Financial Risk Answer Date Recorded How hard is it for you to pa y for the very basics like food, housing, medical care, and air conditioning / heating? Not very hard 12/24/2024 Transportation Answer Date Recorded Has the lack of transportati on kept you from meetings, work, or from getting things needed for daily living? No Has the lack of transportati on kept you from medical appointments or from getting medications? No 12/24/2024 Social Isolation Answer Date Recorded How often do you feel lonely or isolated from th ose around you? Never 12/24/2024 Food Risk Answer Date Recorded Within the past 12 months we worried whether our food would run out before we got money to buy more. Never true 12/24/2024 Within the past 12 months th e food we bought just didn't last and we didn't have money to get more. Never true 12/24/2024 Dependent Care Answer Date Recorded Do you need help finding or paying for care for your loved ones. For example, special needs child caregiver or elderly care for an older adult? No 12/24/2024 Education Answer Date Recorded Do you think completing more education or training, like finishing a GED, going to college, or learning a trade, would be helpful for you? N/A 12/24/2024 Employment and Income Answer Date Recor ded During the last four weeks, have you been actively looking for work? No 12/24/2024 Living Situation Answer Date Recorded What is your living situation? Unrecognized valu e 12/24/2024 Interpersonal Safety Answer Date Record ed Physical Abuse Unrecognized value 01/06/2025 Verbal Abuse Unrecognized value 01/06/2025 Comments No Sex and Gender Information Value Date Recorded Sex Assigned at Female 01/01/2025 11:14 AM EDT Legal Sex Female 4:31 AM EST Gender Identity Female 01/01/2025 11:14 AM EDT Sexual Orientation Not on file Obstetrics History Para Term AB IAB SAB Ectopic Multiple Livin g Live Births 2 2 2 2 Date Outcome GA Total Labor Labor/2nd/3rd Weight Sex Type Anes PTL Althea A1 A5 Name Clin Term Term Last Filed Vital Signs Vital Sign Reading Time Taken Comments Blood Pressure 108/89 01/06/2025 11:44 AM EDT Pulse 76 01/06/2025 11:44 AM EDT Temperature 36.9 C (98.4 F) 01/06/2025 11:34 AM EDT Respiratory Rate 20 01/06/2025 11:44 AM EDT Oxygen Saturation 99% 01/06/2025 11:44 AM EDT Inhaled Oxygen Concentration - - Weight 54.4 kg (120 lb) 12/24/2024 10:56 AM EDT Height 154.9 cm (5' 1 ) 12/24/2024 10:56 AM EDT Body Mass Index 22.67 12/24/2024 10:56 AM EDT Plan of Treatment Upcoming Encounters Date Type Department Care Team (Late st Contact Info) Description 04/09/2025 2:45 PM EST Appointment Bone Density - [address] [phone] 04/16/2025 1:15 PM EST Office Visit Adult Medicine [address] [phone] Tennille Flores MD [address] [place] [address] Health Maintenance Due Date Last Done Comments Zoster Vaccines (1 of 2) 2004 Osteoporosis Screening (Bone Density Screening) 12/17/2022 12/17/2020 Influenza Vaccine (#1) 2024 0, 05/06/2019, 04/10/2012 Medicare Annual Wellness Visit 12/24/2025 12/24/2024 Social Influencers of Health Screening 12/24/2025 12/24/2024, 03/03/2024 Falls Risk Assessment 01/06/2026 01/06/2025, 024 Breast Cancer Screening 01/12/2026 01/13/20 25, 12/25/2023, 12/25/2023, Additional history exists Cholesterol Screening (Lipid Panel) 08/11/2029 08/11/2024, 04/05/2023 RSV Immunization Adult Patients (1 - 1-dose 75+ series) 2029 DTaP,Tdap,and Td Vaccines (3 - Td or Tdap) 12/16/2030 12/16/2020, 11/09/2010 Colorectal Cancer Screening: Colonoscopy 01/06/2035 01/06/2025, 02/17/2015 Hepatitis C Screening Completed 04/05/2013 COVID-19 Vaccine Discontinued 05/28/2020, 04/27/2020 Pneumococcal Vaccine: 50+ Years Discontinued 06/03/2020 Depression Screening Completed 12/23/2024, 04/05/19 24 HIB Vaccines Aged Out No longer eligi ble based on patient's age to complete this topic HPV Vaccines Aged Out No longer eligi ble based on patient's age to complete this topic Hepatitis A Vaccines Aged Out No long er eligible based on patient's age to complete this topic Hepatitis B Vaccines Aged Out No long er eligible based on patient's age to complete this topic IPV Vaccines Aged Out No longer eligi ble based on patient's age to complete this topic MMR Vaccines Aged Out No longer eligi ble based on patient's age to complete this topic Meningococcal ACWY Vaccine Aged Out N o longer eligible based on patient's age to complete this topic Meningococcal B Vaccine Aged Out No l onger eligible based on patient's age to complete this topic RSV Immunization Patients Under 20 months Aged Out No longer eligible based on patient's age to complete this topic Varicella Vaccines Aged Out No longer eligible based on patient's age to complete this topic Goals Goal Patient Goal Type Associated Problems Recent Progress Patient-Stated? Author Autogenerat ed Goal Care Plan Autogenerated Problem No Mauri Cowan Procedures Procedure Name Priority Date/Time Associated Diagnosis Comments MG MAMMO DIGITAL SCREENING W TO BILAT Routine 01/12/2025 1:29 PM EDT Encounter for screening mammogram for breast cancer COLONOSCOPY Routine 01/06/2025 11:23 AM EDT Colon cancer screening TISSUE EXAM Routine 01/06/2025 11:19 AM EDT Colon cancer screening LIPID PANEL WITH REFLEX TO DIRECT LDL Routine 08/11/2024 1:38 PM EDT Hypercholesterolemia HM FALLS RISK ASSESSMENT Routine 10/31/2023 DEPRESSION SCREENING Routine 04/05/2023 DXA BONE DENSITY STUDY 1+ SITS AXIAL SKEL Routine 12/17/2020 2:15 PM EDT Encounter for screening for osteoporosis HM HEPATITIS C SCREENING Routine 04/05/2013 from Last 3 Months or Most Recently Relevant to Health Maintenance Results * MG Mammo Digital Screening w To bilat (01/12/2025 1:29 PM EDT) Anatomical Region Laterality Modality Breast Bilateral Mammography 01/14/2025 12:0 8 PM EDT Impressions 01/14/2025 12:12 PM EDT 1. No mammographic evidence of malignancy 2. Scattered fibroglandular tissue BI-RADS CATEGORY: 2 - BENIGN RECOMMENDATION: Screening bilateral mammogram is recommended in 1 year. Mammo Location: [facility], [address] [place] [address], [id number], . -------- FINAL REPORT -------- Dictated By: Hope Payne Dictated Date: 01/14/2025 12:08 ET Assigned Physician: Hope Payne Reviewed and Electronically Signed By: Hope Payne Signed Date: 01/14/2025 12:12 ET Workstation ID: [id number] Transcribed By: Self Edit Transcribed Date: 01/14/2025 12:08 ET Narrative 01/14/2025 12:12 PM EDT A BILATERAL DIGITAL 3D SCREENING MAMMOGRAPHY HISTORY: Routine screening. Family history of breast cancer in mother and aunt. COMPARISON: Multiple priors dating back to 12/17/2020 Technique: Bilateral full field digital mammography (3D) was performed using standard CC and MLO projections CAD was used to evaluate this mammogram. FINDINGS: Right: No suspicious masses, groups of microcalcification or areas of architectural distortion identified. Stable typically benign parenchymal asymmetries. Left: No suspicious masses, groups of microcalcification or areas of architectural distortion identified. Stable typically benign parenchymal asymmetries. BREAST DENSITY: B - There are scattered areas of fibroglandular density. Procedure Note Hope Payne MD - 01/14/2025 A BILATERAL DIGITAL 3D SCREENING MAMMOGRAPHY HISTORY: Routine screening. Family history of breast cancer in mother andaunt. COMPARISON: Multiple priors dating back to 12/17/2020 Technique: Bilateral full field digital mammography (3D) was performedusing standard CC and MLO projections CAD was used to evaluate this mammogram. FINDINGS: Right: No suspicious masses, groups of microcalcification or areas ofarchitectural distortion identified. Stable typically benign parenchymalasymmetries. Left: No suspicious masses, groups of microcalcification or areas ofarchitectural distortion identified. Stable typically benign parenchymalasymmetries. BREAST DENSITY: B - There are scattered areas of fibroglandular density. IMPRESSION: 1. No mammographic evidence of malignancy 2. Scattered fibroglandular tissue BI-RADS CATEGORY: 2 - BENIGN RECOMMENDATION: Screening bilateral mammogram is recommended in 1 year. Mammo Location: [facility], [address] [place] [address], [id number], . -------- FINAL REPORT -------- Dictated By: Hope Payne Dictated Date: 01/14/2025 12:08 ET Assigned Physician: Hope Payne Reviewed and Electronically Signed By: Hope Payne Signed Date: 01/14/2025 12:12 ET Workstation ID: [id number] Transcribed By: Self Edit Transcribed Date: 01/14/2025 12:08 ET Tennille Flores MD IMG BI PROCEDURES Final Result * COLONOSCOPY Anesthesia - MAC; [facility] ENDOSCOPY (01/06/2025 11:23 AM EDT) Anatomical Region Laterality Modality Endoscopy 01/06/2025 10:5 1 AM EDT Impressions 01/06/2025 11:23 AM EDT - Hemorrhoids found on perianal exam. - One 4 mm polyp in the cecum, removed with a cold snare. Resected and retrieved. - The entire examined colon is normal on direct and retroflexion views. Recommendation: - Discharge patient to home. - High fiber diet. - Continue present medications. - Await pathology results. - Repeat colonoscopy for surveillance based on pathology results. Narrative 01/06/2025 11:23 AM EDT [facility] GI Patient Name: Annie Mejia Procedure Date: 01/06/2025 10:51 AM Date of : 1955 Age: 69 Gender: Female Note Status: Finalized Attending MD: Sasha Gonzalez DO, [id number] Procedure Date No Time: 01/06/2025 Procedure: Colonoscopy Indications: Screening for colorectal malignant neoplasm Providers: Sasha Gonzalez DO Referring MD: Marychuy Griffith PA-C Medicines: Monitored Anesthesia Care Complications: No immediate complications. Estimated Blood Loss: Estimated blood loss was minimal. Procedure: Pre-Anesthesia Assessment: - - Prior to the procedure, a History and Physical was performed, and patient medications and allergies were reviewed. The patient is competent. The risks and benefits of the procedure and the sedation options and risks were discussed with the patient. All questions were answered and informed consent was obtained. Patient identification and proposed procedure were verified by the physician, the nurse, the anesthesiologist, the cold strip roller and the laundry technician in the pre-procedure area in the endoscopy suite. Mental Status Examination: alert and oriented. Airway Examination: normal oropharyngeal airway and neck mobility. Respiratory Examination: clear to auscultation. CV Examination: normal. Prophylactic Antibiotics: The patient does not require prophylactic antibiotics. Prior Anticoagulants: The patient has taken no anticoagulant or antiplatelet agents. ASA Grade Assessment: II - A patient with mild systemic disease. After reviewing the risks and benefits, the patient was deemed in satisfactory condition to undergo the procedure. The anesthesia plan was to use monitored anesthesia care (MAC). Immediately prior to administration of medications, the patient was re-assessed for adequacy to receive sedatives. The heart rate, respiratory rate, oxygen saturations, blood pressure, adequacy of pulmonary ventilation, and response to care were monitored throughout the procedure. The physical status of the patient was re-assessed after the procedure. After I obtained informed consent, the scope was passed under direct vision. Throughout the procedure, the patient's blood pressure, pulse, and oxygen saturations were monitored continuously. The Olympus Pediatric Colonoscope was introduced through the anus and advanced to the cecum, identified by appendiceal orifice and ileocecal valve. The colonoscopy was performed without difficulty. The patient tolerated the procedure well. The quality of the bowel preparation was good. Findings: Hemorrhoids were found on perianal exam. A 4 mm polyp was found in the cecum. The polyp was sessile. The polyp was removed with a cold snare. Resection and retrieval were complete. Verification of patient identification for the specimen was done. Estimated blood loss was minimal. Small internal hemorrhoids were found on retroflexion. A few small-mouthed diverticula were found in the sigmoid colon and descending colon. There was no evidence of diverticular bleeding. The entire examined colon appeared normal on direct and retroflexion views. Procedure Code(s): --- Professional --- 39830, Colonoscopy, flexible; with removal of tumor(s), polyp(s), or other lesion(s) by snare technique Diagnosis Code(s): --- Professional --- Z12.11, Encounter for screening for malignant neoplasm of colon K64.9, Unspecified hemorrhoids D12.0, Benign neoplasm of cecum CPT copyright 2020 [employer]. All rights reserved. The codes documented in this report are preliminary and upon electrical engineering technician review may be revised to meet current compliance requirements. SASHA Gonzalez DO 01/06/2025 11:23:36 AM This report has been signed electronically.Sasha Gonzalez DO Number of Addenda: 0 Note Initiated On: 01/06/2025 10:51 AM Scope Withdrawal Time: 0 hours 7 minutes 13 seconds Scope In: 11:10:32 AM Scope Out: 11:22:40 AM Endoscopy Department at [facility] - [address] [place] [id number] Procedure Note Sasha Gonzalez DO - 01/06/2025 [facility] GI Patient Name: Annie Mejia Procedure Date: 01/06/2025 10:51 AM Date of : 1955 Age: 69 Gender: Female Note Status: Finalized Attending MD: Sasha Gonzalez DO, [id number] Procedure Date No Time: 01/06/2025 Procedure: Colonoscopy Indications: Screening for colorectal malignant neoplasm Providers: Sasha Gonzalez DO Referring MD: Marychuy Griffith PA-C Medicines: Monitored Anesthesia Care Complications: No immediate complications. Estimated Blood Loss: Estimated blood loss was minimal. Procedure: Pre-Anesthesia Assessment: - - Prior to the procedure, a History and Physicalwas performed, and patient medications and allergieswere reviewed. The patient is competent. The risks and benefits of the procedure and the sedation optionsand risks were discussed with the patient. Allquestions were answered and informed consent was obtained. Patient identification and proposed procedure were verified by the physician, the nurse, the anesthesiologist, the cold strip roller and thetechnician in the pre-procedure area in the endoscopy suite. Mental Status Examination: alert and oriented.Airway Examination: normal oropharyngeal airway and neck mobility. Respiratory Examination: clear to auscultation. CV Examination: normal. Prophylactic Antibiotics: The patient does not requireprophylactic antibiotics. Prior Anticoagulants: The patient has taken no anticoagulant or antiplatelet agents. ASA Grade Assessment: II - A patient with mild systemic disease. After reviewing the risks and benefits,the patient was deemed in satisfactory condition to undergo the procedure. The anesthesia plan was touse monitored anesthesia care (MAC). Immediately priorto administration of medications, the patient was re-assessed for adequacy to receive sedatives. The heart rate, respiratory rate, oxygen saturations, blood pressure, adequacy of pulmonary ventilation,and response to care were monitored throughout the procedure. The physical status of the patient was re-assessed after the procedure. After I obtained informed consent, the scope was passed under direct vision. Throughout theprocedure, the patient's blood pressure, pulse, and oxygen saturations were monitored continuously. TheOlympus Pediatric Colonoscope was introduced through theanus and advanced to the cecum, identified byappendiceal orifice and ileocecal valve. The colonoscopy was performed without difficulty. The patient tolerated the procedure well. The quality of the bowel preparation was good. Findings: Hemorrhoids were found on perianal exam. A 4 mm polyp was found in the cecum. The polyp was sessile. The polyp was removed with a cold snare. Resection and retrieval were complete. Verificationof patient identification for the specimen was done. Estimated blood loss was minimal. Small internal hemorrhoids were found onretroflexion. A few small-mouthed diverticula were found in the sigmoid colon and descending colon. There was no evidence of diverticular bleeding. The entire examined colon appeared normal on direct and retroflexion views. Procedure Code(s): --- Professional --- 17994, Colonoscopy, flexible; with removal of tumor(s), polyp(s), or other lesion(s) by snare technique Diagnosis Code(s): --- Professional --- Z12.11, Encounter for screening for malignantneoplasm of colon K64.9, Unspecified hemorrhoids D12.0, Benign neoplasm of cecum CPT copyright 2020 [employer]. All rights reserved. The codes documented in this report are preliminary and upon electrical engineering technician reviewmay be revised to meet current compliance requirements. SASHA Gonzalez DO 01/06/2025 11:23:36 AM This report has been signed electronically.Sasha Gonzalez DO Number of Addenda: 0 Note Initiated On: 01/06/2025 10:51 AM Scope Withdrawal Time: 0 hours 7 minutes 13 seconds Scope In: 11:10:32 AM Scope Out: 11:22:40 AM Endoscopy Department at [facility] - [address] [place] [id number] IMPRESSION: - Hemorrhoids found on perianal exam. - One 4 mm polyp in the cecum, removed with a cold snare. Resected and retrieved. - The entire examined colon is normal on direct and retroflexion views. Recommendation: - Discharge patient to home. - High fiber diet. - Continue present medications. - Await pathology results. - Repeat colonoscopy for surveillance based on pathology results. us Sasha Gonzalez DO GI~PROCEDURE ORDERABLES Final Re sult * Tissue exam (01/06/2025 11:19 AM EDT) Final Diagnosis Colon, cecum polyp: Benign colonic mucosa No adenomatous change identified on deeper levels 01/08/2025 9:25 AM EDT [facility] at 0925 EDT Gross Description A. Large Intestine, Cecum, polyp x1 via jumbo forcep: Labeled colon cecum polyp x 1 . Received in formalin is a 0.2 cm irregular son mucosal tissue fragment which is wrapped in paper and submitted in toto in one cassette, one piece, multiple levels on one slide. DAVINA 01/08/2025 9:25 AM EDT [facility] Disclaimer Unless otherwise specified, all tissue is 10% NB formalin fixed and paraffin embedded. 01/08/2025 9:25 AM EDT [facility] Tissue Cecum structure / Unknown 01/06/2025 11:19 AM EDT 01/06/2025 1:56 PM EDT us Sasha Gonzalez DO LAB PATHOLOGY ORDERABLES Final R esult [facility] [address] [place] [address], [place] [phone] * (ABNORMAL) Lipid panel with reflex to direct LDL (08/11/2024 1:38 PM EDT) Cholesterol 259(H) 0 - 200 mg/dL LAB CHEMISTRY METHOD 08/11/2024 5:37 PM EDT [facility] Triglycerides 206(H) 0 - 150 mg/dL LAB CHEMISTRY METHOD 08/11/2024 5:37 PM EDT [facility] HDL 59 >=40 mg/dL LAB CHEMISTRY METHOD 08/11/2024 5:37 PM EDT [facility] LDL Calculated 159(H) 0 - 100 mg/dL LAB CHEMISTRY METHOD 08/11/2024 5:37 PM EDT [facility] VLDL Cholesterol Carlos 41.2 mg/dL LAB CHEMISTRY METHOD 08/11/2024 5:37 PM EDT [facility] Non HDL Chol. (LDL+VLDL) 200(H) <145 mg/dL LAB CHEMISTRY METHOD 08/11/2024 5:37 PM EDT [facility] Chol/HDL Ratio 4.4 0.0 - 4.4 LAB CHEMISTRY METHOD 08/11/2024 5:37 PM EDT [facility] Blood Venous blood specimen / Unknown Venipuncture / Unknown 08/11/2024 1:38 PM EDT 08/11/2024 1:38 PM EDT Analy PIKE LAB BLOOD ORDERABLES Final Resul t [facility] [address] [place] [address], * Falls Risk Assessment (10/31/2023) Falls Risk Assessment Abstracted Historical Provider MD HEALTH MAINTENANCE Final Result * Depression Screening (04/05/2023) Pathologist [facility] Depression Screening Abstracted Historical Provider MD HEALTH MAINTENANCE Final Result * DXA BONE DENSITY STUDY 1+ SITS AXIAL SKEL (12/17/2020 2:15 PM EDT) Anatomical Region Laterality Modality Bone Densitometr y 06/03/2020 3:30 PM EST Narrative 12/17/2020 6:39 PM EDT BONE DENSITY Lumbar Spine T-score is -0.9 (SD relative to 20-29 y/o adult) Z-score is +0.9 (SD relative to age matched peers) This is normal by criteria defined by the WHO. Left Hip T-score is -1.3 Z-score is +0.1 This is consistent with osteopenia by criteria defined by the WHO. Comparison exam(s): significant decrease in bone density of hip and lumbar spine when compared to most recent bone density examination Confidence level is +/-95%. Impression: Based on the World Health Organization criteria, Annie Mejia should be classified as having osteopenia. This patient has a 4.6% risk of major osteoporotic fracture and a 0.4% risk of hip fracture over the next 10 years. (World Health Organization Fracture Risk Assessment) [facility] recommends using National Osteoporosis Foundation (NOF) guidelines in treatment decisions related to osteoporosis. NOF guidelines suggest considering treatment for postmenopausal women and men aged 50 or older presenting with the following: History of hip or vertebral fracture. T-score less than or equal to -2.5 (DXA) at the femoral neck, total hip, or spine, after appropriate evaluation to exclude secondary causes. Low bone mass (T-score between -1.0 and -2.5 at the femoral neck or spine) AND a 10-year probability of a hip fracture greater than or equal to 3% OR a 10-year probability of a major osteoporosis-related fracture greater than or equal to 20% based on the [place]-adapted WHO algorithm Please note that all treatment decisions require clinical judgment and consideration of individual patient factors, including patient preferences, co-morbidities, previous drug use, risk factors not captured in the FRAX model (e.g., frailty, falls, vitamin D deficiency, increased bone turnover, interval significant decline in bone density) and possible under- or over-estimation of fracture risk by FRAX. Procedure Note Ivory Meza MD - 03/14/2022 BONE DENSITY Lumbar Spine T-score is -0.9 (SD relative to 20-29 y/o adult) Z-score is +0.9 (SD relative to age matched peers) This is normal by criteria defined by the WHO. Left Hip T-score is -1.3 Z-score is +0.1 This is consistent with osteopenia by criteria defined by the WHO. Comparison exam(s): significant decrease in bone density of hip andlumbar spine when compared to most recent bone density examination Confidence level is +/-95%. Impression: Based on the World Health Organization criteria, Annie Hassanhould be classified as having osteopenia. This patient has a 4.6% risk ofmajor osteoporotic fracture and a 0.4% risk of hip fracture over the next10 years. (World Health Organization Fracture Risk Assessment) [facility] recommendsusing National Osteoporosis Foundation (NOF) guidelines in treatmentdecisions related to osteoporosis. NOF guidelines suggest consideringtreatment for postmenopausal women and men aged 50 or older presentingwith the following: History of hip or vertebral fracture. T-score less than or equal to -2.5 (DXA) at the femoral neck, total hip,or spine, after appropriate evaluation to exclude secondary causes. Low bone mass (T-score between -1.0 and -2.5 at the femoral neck or spine)AND a 10-year probability of a hip fracture greater than or equal to 3% ORa 10-year probability of a major osteoporosis-related fracture greaterthan or equal to 20% based on the [place]-adapted WHO algorithm Please note that all treatment decisions require clinical judgment andconsideration of individual patient factors, including patientpreferences, co-morbidities, previous drug use, risk factors not capturedin the FRAX model (e.g., frailty, falls, vitamin D deficiency, increasedbone turnover, interval significant decline in bone density) and possibleunder- or over-estimation of fracture risk by FRAX. [facility] PIKE IM DXA PROCEDURES Final R esult * Hepatitis C Screening (04/05/2013) [facility] Hepatitis C Screening Abstracted Historical Provider MD HEALTH MAINTENANCE Final Result from Last 3 Months or Most Recently Relevant to Health Maintenance Additional Health Concerns Active Problems Noted Date Diagnosed Date Autogenerated Problem 12/22/2024 Insurance [employer] MEDICARE ADVANTAGE [place]ICAID [place] Care Teams Poll Watcher Relationship Specialty Start Date End Date Tennille Flores MD [address] [place] [address] PCP - General Internal Medicine 06/03/20
--- OUTSIDE RECORDS SUMMARY | 2025-03-06 18:36 | XMS_ITS ---
Author Name [facility] Organization Unknown History of Medication Use Medication Directions Dispensed Refills Start Date End Date [facility] amitriptyline (ELAVIL) tablet 25 mg Take 1 tablet (25 mg total) by mouth every night at bedtime for 7 days, THEN 2 tablets (50 mg total) every night at bedtime for 7 days, THEN 3 tablets (75 mg total) every night at bedtime for 30 days. 07/02/2023 08/16/2023 active ezetimibe (ZETIA) tablet 10 mg Take 1 tablet (10 mg total) by mouth daily. 04/05/2023 active levothyroxine (SYNTHROID) tablet 50 mcg Take 1 tablet (50 mcg total) by mouth daily. 04/05/2023 active Problems Problem Status Onset Date Problem Type Date of Resolution Source Other headache syndrome active EncounterDiagnosisAct CTTHNE MG Tinnitus, unspecified laterality active EncounterDiagnosisAct CTTHNE MG Care Team Organization Name Specialty Phone Email Start Date End Da [facility] Dori [facility] 01/31/202210/24
--- OUTSIDE RECORDS SUMMARY | 2025-03-06 18:36 | XMS_ITS | Clinical Summary ---
Author Organization [facility] Prior to 08/23/[address] [place] [address] Care Team Providers Care Facility Assistant Name Role Phone Tennille Flores MD Primary Care Provider [phone] Allergies No known active allergies Medications Medication Sig Dispensed Refills Start Date End Date Status ezetimibe (ZETIA) tablet 10 mg Take 1 tablet (10 mg total) by mouth daily. 0 04/05/2023 Active levothyroxine (SYNTHROID) tablet 50 mcg Take 1 tablet (50 mcg total) by mouth daily. 0 04/05/2023 Active Social History Tobacco Use Types Packs/Day Years Used Date Smoking Tobacco: Never Assessed Sex and Gender Information Value Date Recorded Sex Assigned at Female 02/07/2023 4:03 PM EST Gender Identity Not on file Sexual Orientation Not on file Job Start Date Occupation Industry Not on file Not on file Not on file Last Filed Vital Signs Vital Sign Reading Time Taken Comments Blood Pressure 124/79 07/02/2023 1:18 PM EDT Pulse 92 07/02/2023 1:18 PM EDT Temperature - - Respiratory Rate - - Oxygen Saturation 96% 07/02/2023 1:18 PM EDT Inhaled Oxygen Concentration - - Weight 56.8 kg (125 lb 3.2 oz) 07/02/2023 1:18 P M EDT Height 154.9 cm (5' 1 ) 07/02/2023 1:18 PM EDT Body Mass Index 23.66 07/02/2023 1:18 PM EDT Plan of Treatment Health Maintenance Due Date Last Done Comments Hepatitis C Screening 1955 COVID-19 Vaccine (#1) 03[birth year]27/1955 Depression Screening 1966 Preventative Health Evaluation 1972 Colon Cancer Screening (Colonoscopy) 09/25/1999 Breast Cancer Screening (Mammogram) 2004 Shingrix-Zoster Vaccine (1 o f 2) 2004 Fall Risk Assessment 09/25/2019 Osteoporosis Screening (DEXA Scan) 09/25/2019 DTap / Tdap / Td (2 - Td or Tdap) 11/09/2020 11/09/2010 Pneumococcal Vaccine (2 of 2 - PPSV23 or PCV20) 06/03/2021 06/03/2020 Influenza Vaccine (#1) 2024 0, 01/19/2020, 05/06/2019 RSV Adult > 60+ Yrs or (1 - 1-dose 75+ series) 2029 Hepatitis B Vaccines Aged Out No long er eligible based on patient's age to complete this topic RSV Ped < 20 months Aged Out No longe r eligible based on patient's age to complete this topic Care Teams Facility Assistant Relationship Specialty Start Date End Date Tennille Flores MD PCP - General Internal Medicine 10/16/22
--- OUTSIDE RECORDS SUMMARY | 2025-03-06 18:36 | XMS_ITS | Encounter Summary ---
Author Organization [facility] Address [address] [place] [address] Care Team Providers Care Saw Man Name Role Phone Tennille Flores MD Primary Care Provider [phone] Encounter Details Date Type Department Care Team ([facility] st Contact Info) Description 01/08/2025 Results Follow-Up Gastroenterology - [place] [address] [facility] [address] [facility] [address] [place] [id number] Heriberto Gonzalez DO [address] [facility] [address] [place] [address] Social History Tobacco Use Types Packs/Day Years Used Date Smoking Tobacco: Never Smokeless Tobacco: Never Alcohol Use Standard Drinks/Week Comments No 0 [...] care for your loved ones. For example, child and family services specialist or elderly care for an older adult? [...] AM EDT Sexual Orientation Not on file documented as of this encounter Progress Notes * Heriberto Gonzalez DO - 01/08/2025 1:25 PM EDT Please let the patient know that the colon polyp removed was benign and and not precancerous. Giventhe lack of personal or family history risk factors, and based on current guidelines, I recommend that a repeat screening colonoscopy is scheduled in 10 years. The patient may follow-up with the primary care provider as instructed. Please place a reminder on the system for the patient to be contacted to have a repeat screening colonoscopy in 10 years. Thank you. documented in this encounter Plan of Treatment Upcoming Encounters Date Type Department Care Team (Late st Contact Info) Description 04/09/2025 2:45 PM EST Appointment Bone Density - [address] [phone] 04/16/2025 1:15 PM EST Office Visit Adult Medicine [facility] - [address] [phone] Tennille Flores MD [address] [place] [address] documented as of this encounter Goals Goal Patient Goal Type Associated Problems Recent Progress Patient-Stated? Author Autogenerat ed Goal Care Plan Autogenerated Problem No Mauri Cowan documented as of this encounter Visit Diagnoses Not on filedocumented in this encounter Additional Health Concerns Active Problems Noted Date Diagnosed Date Autogenerated Problem 12/22/2024 Assessment Noted Time PHQ-9 Depression Total Score: 1 12/24/19 25 2:03 PM EDT documented as of this encounter Care Teams Saw Man Relationship Specialty Start Date End Date Tennille Flores MD [address] [place] [address] PCP - General Internal Medicine 06/03/20 documented as of this encounter
== END 2025-03-06 13:34 | disposition home or self-care (01) ==
LOC: HO.ENCR 12:56
PROVIDERS: PCP Internal Medicine; Visit Provider Student in an Organized Health Care Education/Training Program
DX: E06.3 Autoimmune thyroiditis (principal)
CPT/HCPCS: 99203; G2211

== ENCOUNTER 2025-03-11 12:55 | Outpatient (AMB) | payer MEDICARE, MEDICAID, SELFPAY ==
--- NOTE | 2025-03-11 13:11 | A.OFFPC_ITS ---
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 Transferring care from Dr Valerie Flores ([facility]). Medical records have been requested and have not received. Lead Scientist Required: No Evp And Chief Operating Officer: Not Required per policy Accompanied by: Self / Same As Patient Allergies No Known Allergies (No Known Allergies*) Allergy (Verified 03/11/25 17:47) Medication List - Last Reconciled 03/11/25 by Jane Charles PA-C ezetimibe 10 mg PO QPM levothyroxine 50 mcg PO QAM naproxen 375 mg PO BID PRN 30 days tizanidine (Zanaflex) 2 mg (1/2 x 4 mg) PO BID PRN 5 days Tobacco use date assessed: 03/11/25 Fall risk assessment: 1 Fall in past year Dental Screening Dental Screen Date: 03/11/25 Did you have a dental visit in the last 12 months?: Yes Did you have a dental problem in the last 6 months where you did not have access to dental care?: No Was dental information given to patient?: Patient has dentist 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 Patient tells us today she is a previous patient of [facility]. She sees endocrinology through [facility] who is monitoring her hypothyroid. She was previously diagnosed with prediabetes and has not had her blood sugars checked recently. She does complain of ringing in the ears and has had extensive workup with ear nose and throat which did not reveal any abnormalities and was attributed to age-related hearing loss. colonoscopy: 2024 mammo: 11/2024 DEXA: 2023 pap smear: awaiting referral [facility] Medical History High cholesterol Hypothyroid Surgical History History of tubal ligation Hx of tubal ligation Family History Mother Breast cancer Family history of cancer Sister Hx of thyroidectomy Sister Thyroid nodule Parathyroid disease Brother Thyroid disease Father Diabetes mellitus Mother Breast cancer Social History Housing: Other Housing Other:: [place] home Alcohol intake: never Patient Tobacco Use Status: Never used Tobacco e-Cigarette/Vaping Use: Never Used Second Hand Smoke Exposure: No service: No Current occupational status: retired Current occupational exposures/hazards: No Cognitive needs: No Hearing needs: Yes (Hearing aide) Vision needs: Yes (Glasses) Female Reproductive History Menstrual control method: permanent sterilization Permanent Sterilization: BTL Total pregnancies: 2 Questionnaire PHQ-9 Over the last 2 weeks, how often have you been bothered by any of the following problems? 1. Little interest or pleasure in doing things: not at all 2. Feeling down, depressed, or hopeless: not at all 3. Trouble falling or staying asleep, or sleeping too much: not at all 4. Feeling tired or having little energy: not at all 5. Poor appetite or overeating: not at all 6. Feeling bad about yourself - or that you are a failure or have let yourself or your family down: not at all 7. Trouble concentrating on things, such as reading the newspaper or watching television: not at all 8. Moving or speaking so slowly that other people could have noticed. Or the opposite - being so fidgety or restless that you have been moving around a lot more than usual: not at all 9. Thoughts that you would be better off or of hurting yourself in some way: not at all Total score: 0 Depression Screening Interpretation: Negative Depression Screening Done: Yes Source: Developed by Drs. Sujit Oliva, Dena Goins, Ok Jordan and colleagues, with an educational luis from [employer]. Thrive Questionnaire Date Thrive assessed: 03/11/25 I am a: Patient What is your living situation today?: I have a steady place to live Within the past 12 months, did the food you bought not last and you didn't have the money to get more?: Never true Within the past 12 months, did you worry whether your food would run out before you got money to buy more?: Never true Do you have trouble paying for medicines?: No Do you have trouble getting transportation to medical appointments?: No Do you have trouble paying your heating and electricity bill?: No Do you have trouble taking care of your child, family member or friend?: No Do you have trouble with day-to-day activities such as bathing, preparing meals, shopping, managing finances, etc.?: No Are you currently unemployed and looking for a job?: No Are you interested in more education?: No Please select the resources that you would like help with: None Currently or been in a relationship where the following occur: No concerns reported THRIVE Score: 0 AUDIT C Alcohol Use Questionnaire (AUDIT-C) 1. How often do you have a drink containing alcohol?: Never Total Score: 0 HALEY-7 AMB Questionnaire HALEY-7 Date HALEY - 7 assessed: 03/11/25 Feeling nervous, anxious, or on edge: 0 = Not at all Not being able to stop or control worryin = Not at all Worrying too much about different things: 0 = Not at all Trouble relaxin = Not at all Being so restless that it is hard to sit still: 0 = Not at all Becoming easily annoyed or irritable: 0 = Not at all Feeling afraid as if something awful might happen: 0 = Not at all Total HALEY-7 score (0-4 normal; 5-9 mild; 10-14 moderate; 15-21 severe): 0 Source: Developed by Drs. Sujit Oliva, Dena Goins, Ok Jordan and colleagues, with an educational luis from [employer]. Review of Systems Const Denies body aches, Denies fatigue, Denies fever(s), Denies frequent falls, Denies headache(s) and Denies weakness Eyes Reports no additional complaints and Denies change in vision ENT Denies dysphagia, Denies dizziness, Denies facial pain, Denies headache(s), Denies nasal congestion and Denies odynophagia Card Denies chest pain, Denies syncope, Denies irregular heart rhythm, Denies leg edema, Denies lightheadedness and Denies dyspnea Resp Denies cough and Denies dyspnea GI Denies constipation, Denies dysphagia, Denies dyspepsia, Denies diarrhea, Denies nausea, Denies odynophagia and Denies vomiting Denies urinary frequency, Denies dysuria, Denies urinary hesitancy and Denies urinary urgency Musc Denies back pain and Denies myalgias Skin/Breast Reports system reviewed and no additional complaints, except as documented Neuro Denies dizziness, Denies syncope, Denies frequent falls, Denies headache(s) and Denies weakness Psych Reports no additional complaints Endo Denies fatigue Physical exam (Primary Care) Vital Signs: Last Vital Signs Temp 97.1 F 03/11/25 13:17 Pulse 90 03/11/25 13:17 BP 130/62 03/11/25 13:17 Pulse Ox 97 03/11/25 13:17 Oxygen Delivery Method Room Air 03/11/25 13:17 BMI result Body Mass Index 22.5 Tobacco/Smoking Status: Tobacco use Status Tobacco use date assessed 03/11/25 03/11/25 13:28 Patient Tobacco Use Status Never used Tobacco 03/11/25 13:28 e-Cigarette/Vaping Use Never Used 03/11/25 13:28 PHQ-9: PHQ-9 Score PHQ-9: Total score 0 03/11/25 14:19 Depression Screening Interpretation: Negative Thrive Assessment: Date of Thrive Assessment Date Thrive assessed 03/11/25 03/11/25 13:15 Currently or been in a relationship where the following occur: No concerns reported Const General: cooperative, healthy appearing, comfortable and no acute distress Orientation/consciousness: patient oriented x3 HENMT Head: Yes normocephalic Ears: hearing grossly normal bilaterally General nose exam: Normal external nose present Eyes General: appearance normal, both eyes and all related structures Conjunctivae: conjunctivae normal Neck Neck: Yes full ROM and Yes no lymphadenopathy Resp Effort & Inspection: normal respiratory effort Auscultation: clear to auscultation bilaterally, no crackles, no rales, no rhonchi and no wheezes Cardio Rate: regular rate Rhythm: regular rhythm Skin General skin exam: no rashes or lesions noted Neuro General: patient oriented x3 Gait exam (Neuro): Normal gait present Extrem General: Yes normal to inspection, Yes full ROM and No edema Psych Affect: normal affect Attitude: cooperative Insight: Good insight present (Psych) Judgement: Good judgement present (Psych) Coding Level of Care Code New Pt Level 4 (51608) Diagnoses Hypercholesterolemia E78.00 Hypothyroidism E03.9 Tinnitus H93.19 Cervical spine arthritis M47.812 RLS (restless legs syndrome) G25.81 Assessment & Plan Assessment & Plan (1) Hypercholesterolemia: Code(s): E78.00 - Pure hypercholesterolemia, unspecified Category: Medical Plan: Avoid foods that are high in cholesterol such as red meat, fried foods, eggs and baked goods. Triglyceride goal of less than 150 and LDL goal of less than 150. Continue on Zetia (2) Hypothyroidism: Code(s): E03.9 - Hypothyroidism, unspecified Category: Medical Plan: Patient to continue on levothyroxine at this time repeat blood work is ordered. (3) Tinnitus: Comment: Eval by ENT workup neg Code(s): H93.19 - Tinnitus, unspecified ear Category: Medical Plan: For the ringing in the ears is not bothersome to the patient and she has had extensive workup with ENT in the past. Reviewed red flag symptoms and when to present for re-evaluation. (4) Cervical spine arthritis: Code(s): M47.812 - Spondylosis without myelopathy or radiculopathy, cervical region Category: Medical Plan: No acute concerns at this time continue with ibuprofen as needed (5) RLS (restless legs syndrome): Code(s): G25.81 - Restless legs syndrome Category: Medical Plan: For restless leg syndrome she uses [id number] topical treatments and finds this beneficial. She does also use magnesium at nighttime to help with the restless legs declining additional medication management at this time Plan This note was constructed using voice recognition software. While every effort has been made to ensure accuracy and program director/traffic director, still areas may have been included sometimes these areas may affect the content or meeting of the given symptoms. Total time spent caring for the patient today was 30 minutes. This includes time spent before the visit reviewing the chart, time spent during the visit, and time spent after the visit and documentation. Patient was informed and verbally consented to the use of an ambient scribe for clinic note documentation during this visit. Orders: Orders Vitamin D 25-OH Total Today Z13.21 - Encounter for screening for nutritional disorder Lipid Panel Today E78.00 - Pure hypercholesterolemia, unspecified UA CC w/rflx Micro + Cult Today Z13.9 - Encounter for screening, unspecified Vitamin B12 and Folate Today Z13.21 - Encounter for screening for nutritional disorder Complete Blood Count Auto Diff Today Z13.0 - Encounter for screening for diseases of the blood and blood-forming organs and certain disorders involving the immune mechanism Comprehensive Met. Panel Today Z00.00 - Encounter for general adult medical examination without abnormal findings
[2025-03-11 13:17] VITALS: BP 130/62; PULSE 90; TEMP 36.2; O2SAT 97; BMI 22.5
--- OUTSIDE RECORDS SUMMARY | 2025-03-11 16:58 | XMS_ITS | Patient Health Record ---
[facility] [place] Address [address] [place] [address] Care Team Providers Care Manual Arts Therapist Name Role Phone Karol Morales NP Primary Care Provider Daniel Bhat Unavailable [phone] Allergies No Known Allergies Reason For Referral [...] Insured Coverage Start Date Coverage End Date [facility] [employer] Claims [address] [place] [address] [id number] [employer], [place] Self - patient is the insured Medical (General) History Medical History History ICD Code Anxiety CAD (Cholesterol) Diabetic, pre Glaucoma Sciatica thyroid
--- OUTSIDE RECORDS SUMMARY | 2025-03-11 16:58 | XMS_ITS | Encounter Summary ---
Author Organization [facility] Address [address] [place] [address] Care Team Providers Care Air Valve Repairer Name Role Phone Tennille Flores MD Primary Care Provider [phone] Encounter Details Date Type Department Care Team ([facility] st Contact Info) Description 01/08/2025 Results Follow-Up Gastroenterology - [place] 175 [facility] 175 [facility] 200 [place] [phone] Heriberto Gonzalez DO [address] [facility] [address] [place] [address] Social History Tobacco Use Types Packs/Day Years [...] care for your loved ones. For example, children's tutor nursery or elderly care for an older adult? [...] 2:45 PM EST Appointment Bone Density - [address] [phone] 04/16/2025 1:15 PM EST Office Visit Adult Medicine [facility] - [address] [phone] Tennille Flores MD [address] [place] [address] documented as of this encounter Goals Goal [...] documented as of this encounter Care Teams Air Valve Repairer Relationship Specialty Start Date End Date Tennille Flores MD [address] [place] [address] PCP - General Internal Medicine 06/03/20 documented as of this encounter
--- OUTSIDE RECORDS SUMMARY | 2025-03-11 16:58 | XMS_ITS | Clinical Summary ---
Author Organization [facility] Prior to 08/23/[address] [place] [address] Care Team Providers Care Assistance Specialist Name Role Phone Tennille Flores MD Primary Care Provider [phone] Allergies No known active allergies Medications Medication [...] age to complete this topic Care Teams Assistance Specialist Relationship Specialty Start Date End Date Tennille Flores MD PCP - General Internal Medicine 10/16/22
--- OUTSIDE RECORDS SUMMARY | 2025-03-11 16:58 | XMS_ITS | Clinical Summary ---
Author Organization [facility] [address] [place] [address] Address [address] [place] [address] Phone Care Team Providers Care Research Coordinator Name Role Phone Tennille Flores MD Primary Care Provider [phone] Allergies No known active allergies Medications calcium carbonate/vitam in D3 (CALCIUM + D ORAL) Take by mouth 2 (two) times a day. Active pedi multivit no.228/fluoride (YKFLY-BQM-RVFX ORAL) Take by mouth 1 (one) time [...] PM EDT Hospital Encounter Radiology Department - [address] [phone] Encounter for screening mammogram for breast cancer Discharge Disposition: Home or Self Care 01/08/2025 Results Follow-Up Gastroenterology - [place] 175 [facility] 175 [facility] [address] [place] [address] Sasha Gonzalez DO 01/06/2025 10:57 AM EDT Anesthesia Event [facility] [address] [place] [phone] Jeff Alexander DO 01/06/2025 9:08 AM EDT - 01/06/2025 11:59 PM EDT Hospital Encounter [facility] [address] [place] [phone] Sasha Gonzalez DO Barnes, Tyanna R, CRNA Dasilva, John E, MD Colon cancer screening Discharge Disposition: Home or Self Care 12/25/2024 Telephone Adult Medicine [address] [phone] Tennille Flores MD 12/24/2024 11:00 AM EDT Office Visit Adult Medicine [address] [phone] Dori Moore PA Encounter for annual wellness visit (AWV) in Medicare patient (Primary Dx); 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 For example, child welfare worker or elderly care for an older adult? [...] 2:45 PM EST Appointment [facility] Density - [address] [phone] 04/16/2025 1:15 PM EST Office Visit Adult Medicine [address] [phone] Tennille Flores MD [address] [place] [address] Health Maintenance Due Date Last Done Comments [...] is recommended in 1 year. Mammo Location: [facility], [address] [place] [address], [id number], . -------- FINAL REPORT -------- Dictated By: Hope Payne Dictated Date: 01/14/2025 12:08 ET Assigned Physician: Hope Payne Reviewed and Electronically Signed By: Hope Payne Signed Date: 01/14/2025 12:12 ET Workstation ID: [id number] Transcribed By: Self Edit Transcribed Date: 01/14/2025 [...] is recommended in 1 year. Mammo Location: [facility], [address] [place] [address], [id number], . -------- FINAL REPORT -------- Dictated By: Hope Payne Dictated Date: 01/14/2025 12:08 ET Assigned Physician: Hope Payne Reviewed and Electronically Signed By: Hope Payne Signed Date: 01/14/2025 12:12 ET Workstation ID: [id number] Transcribed By: Self Edit Transcribed Date: 01/14/2025 12:08 ET Tennille Flores MD IMG BI PROCEDURES Final Result * COLONOSCOPY Anesthesia - MAC; [facility] ENDOSCOPY (01/06/2025 11:23 AM EDT) Anatomical Region [...] pathology results. Narrative 01/06/2025 11:23 AM EDT [facility] GI Patient Name: Annie Mejia Procedure Date: 01/06/2025 10:51 AM Date of : 1955 Age: 69 Gender: Female Note Status: Finalized Attending MD: Sasha Gonzalez DO, [id number] Procedure Date No Time: 01/06/2025 Procedure: Colonoscopy [...] the physician, the nurse, the anesthesiologist, the environmental services manager and the hvac residential service technician in the pre-procedure area in the [...] retroflexion views. Procedure Code(s): --- Professional --- 70362, Colonoscopy, flexible; with removal of tumor(s), polyp(s), or other lesion(s) by snare technique Diagnosis Code(s): --- Professional --- Z12.11, Encounter for screening for malignant neoplasm of colon K64.9, Unspecified hemorrhoids D12.0, Benign neoplasm of cecum CPT copyright 2020 [employer]. All rights reserved. The codes documented in this report are preliminary and upon icebox man review may be revised to meet current compliance requirements. SASHA Gonzalez DO 01/06/2025 11:23:36 AM This report has been signed electronically.Sasha Gonzalez DO Number of Addenda: 0 Note Initiated On: 01/06/2025 10:51 AM Scope Withdrawal Time: 0 hours 7 minutes 13 seconds Scope In: 11:10:32 AM Scope Out: 11:22:40 AM Endoscopy Department at [facility] - [address] [place] [phone] Procedure Note Sasha Gonzalez DO - 01/06/2025 [facility] GI Patient Name: Annie Mejia Procedure Date: 01/06/2025 10:51 AM Date of : 1955 Age: 69 Gender: Female Note Status: Finalized Attending MD: Sasha Gonzalez DO, [id number] Procedure Date No Time: 01/06/2025 Procedure: Colonoscopy [...] the physician, the nurse, the anesthesiologist, the environmental services manager and thetechnician in the pre-procedure area in [...] retroflexion views. Procedure Code(s): --- Professional --- 81177, Colonoscopy, flexible; with removal of tumor(s), polyp(s), or other lesion(s) by snare technique Diagnosis Code(s): --- Professional --- Z12.11, Encounter for screening for malignantneoplasm of colon K64.9, Unspecified hemorrhoids D12.0, Benign neoplasm of cecum CPT copyright 2020 [employer]. All rights reserved. The codes documented in this report are preliminary and upon icebox man reviewmay be revised to meet current compliance requirements. SASHA Gonzalez DO 01/06/2025 11:23:36 AM This report has been signed electronically.Sasha Gonzalez DO Number of Addenda: 0 Note Initiated On: 01/06/2025 10:51 AM Scope Withdrawal Time: 0 hours 7 minutes 13 seconds Scope In: 11:10:32 AM Scope Out: 11:22:40 AM Endoscopy Department at [facility] - [address] [place] [phone] IMPRESSION: - Hemorrhoids found on perianal exam. [...] on deeper levels 01/08/2025 9:25 AM EDT [facility] at 0925 EDT Gross Description A. Large Intestine, Cecum, polyp x1 via jumbo forcep: Labeled colon cecum polyp x 1 . Received in formalin is a 0.2 cm irregular son mucosal tissue fragment which is wrapped in paper and submitted in toto in one cassette, one piece, multiple levels on one slide. DAVINA 01/08/2025 9:25 AM EDT [facility] Disclaimer Unless otherwise specified, all tissue is 10% NB formalin fixed and paraffin embedded. 01/08/2025 9:25 AM EDT [facility] Tissue Cecum structure / Unknown 01/06/2025 11:19 AM EDT 01/06/2025 1:56 PM EDT us Sasha Gonzalez DO LAB PATHOLOGY ORDERABLES Final R esult [facility] [address] [place] [address], [place] [phone] * (ABNORMAL) Lipid panel with reflex to direct LDL (08/11/2024 1:38 PM EDT) Cholesterol 259(H) 0 - 200 mg/dL LAB CHEMISTRY METHOD 08/11/2024 5:37 PM EDT [facility] Triglycerides 206(H) 0 - 150 mg/dL LAB CHEMISTRY METHOD 08/11/2024 5:37 PM EDT [facility] HDL 59 >=40 mg/dL LAB CHEMISTRY METHOD 08/11/2024 5:37 PM EDT [facility] LDL Calculated 159(H) 0 - 100 mg/dL LAB CHEMISTRY METHOD 08/11/2024 5:37 PM EDT [facility] VLDL Cholesterol Carlos 41.2 mg/dL LAB CHEMISTRY METHOD 08/11/2024 5:37 PM EDT [facility] Non HDL Chol. (LDL+VLDL) 200(H) <145 mg/dL LAB CHEMISTRY METHOD 08/11/2024 5:37 PM EDT [facility] Chol/HDL Ratio 4.4 0.0 - 4.4 LAB CHEMISTRY METHOD 08/11/2024 5:37 PM EDT [facility] Blood Venous blood specimen / Unknown Venipuncture / Unknown 08/11/2024 1:38 PM EDT 08/11/2024 1:38 PM EDT Analy PIKE LAB BLOOD ORDERABLES Final Resul t [facility] [address] [place] [address], * Falls Risk Assessment (10/31/2023) Falls Risk Assessment Abstracted Historical Provider MD HEALTH MAINTENANCE Final Result * Depression Screening (04/05/2023) Pathologist [facility] Depression Screening Abstracted Historical Provider MD HEALTH [...] (World Health Organization Fracture Risk Assessment) [facility] Department of Internal Medicine recommends using National [...] (World Health Organization Fracture Risk Assessment) [facility] Department of Internal Medicine recommendsusing National Osteoporosis [...] or over-estimation of fracture risk by FRAX. Jaci PIKE IM DXA PROCEDURES Final R esult * Hepatitis C Screening (04/05/2013) [facility] Hepatitis C Screening Abstracted Historical Provider MD HEALTH MAINTENANCE Final Result from Last 3 Months or Most Recently Relevant to Health Maintenance Additional Health Concerns Active Problems Noted Date Diagnosed Date Autogenerated Problem 12/22/2024 Insurance [employer] MEDICARE ADVANT[place]ICAID [place] Care Teams Research Coordinator Relationship Specialty Start Date End Date Tennille Flores MD [address] [place] [address] PCP - General Internal Medicine 06/03/20
--- OUTSIDE RECORDS SUMMARY | 2025-03-11 16:58 | XMS_ITS ---
Author Name [facility] Organization Unknown History of Medication Use Medication Directions Dispensed Refills Start Date End Date [facility] amitriptyline (ELAVIL) tablet 25 mg Take 1 [...] Specialty Phone Email Start Date End [facility] Dori Moore Primary [facility] 01/31/202210/24
== END 2025-03-11 14:12 | disposition home or self-care (01) ==
DX: E78.00 Pure hypercholesterolemia, unspecified (principal); E03.9 Hypothyroidism, unspecified; H93.19 Tinnitus, unspecified ear; M47.812 Spondylosis without myelopathy or radiculopathy, cervical region; G25.81 Restless legs syndrome

== ENCOUNTER → 2025-03-11 12:55 | Outpatient (BNVA) | payer MEDICARE, SELFPAY | DX: M47.812 Spondylosis without myelopathy or radiculopathy, cervical region (principal); E78.00 Pure hypercholesterolemia, unspecified; E03.9 Hypothyroidism, unspecified; H93.19 Tinnitus, unspecified ear; G25.81 Restless legs syndrome | CPT/HCPCS: 96127; 99202 ==